=== PATIENT | male | born 1930 | race Caucasian/White ===

== ENCOUNTER 2016-10-27 00:30 | Inpatient (IN) | payer MEDICARE, OTHER ==
[~2016-10-27] VITALS: Ht 177.8 cm; Wt 79.8 kg
[2016-10-27] MEDS ORDERED: ONDANSETRON HCL/PF 4 MG/2 ML VIAL ONE (00:39)
[2016-10-27] MEDS ORDERED: IV NS 0.9% 1,000 ML ONE ×2 (00:40→05:27)
[2016-10-27] MEDS ORDERED: IV SET PRIMARY 1 EA INFUS.SET MC ONE (00:40)
[2016-10-27] MEDS ORDERED: METOCLOPRAMIDE HCL 10 MG/2 ML VIAL ONE (00:48)
--- NOTE | 2016-10-27 00:50 | NUR ---
PT A/OX4 BREATHING EFFORTLESSLY ON ROOM AIR, PT STATES HE FEELS VERY FAINT AND DIZZY, PT IS DIAPHROETIC AND PALE, PT BIBA FOR SYNCOPAL EPISODE, IV PLACED PRIOR TO ARRIVAL AND IV PLACED IN ER, LABS DRAWN, PT ON MONITOR, IN GOWN, AT BEDSIDE WILL CONTINUE TO MONITOR.
[2016-10-27] MEDS ORDERED: METOCLOPRAMIDE HCL 10 MG/2 ML VIAL IV ONE (01:00)
[2016-10-27] MEDS ORDERED: ONDANSETRON HCL/PF 4 MG/2 ML VIAL IVP ONE (01:00)
[2016-10-27] MEDS ORDERED: IV NS 0.9% 500 ML BAG IV ONE (01:00)
--- NOTE | 2016-10-27 01:13 | NUR ---
PT BACK FROM CT
[2016-10-27 01:26] LABS: BASOPHILS % (AUTO) 0.6 % (0.0-2.0); EOSINOPHILS # (AUTO) 0.5 /CMM (0.0-0.7); EOSINOPHILS % (AUTO) 5.9 % (0.0-6.0); HEMATOCRIT 38 % (39-51); HEMOGLOBIN 12.7 g/dL (13.5-17.5); LYMPHOCYTES # (AUTO) 2.7 /CMM (0.8-4.8); LYMPHOCYTES % (AUTO) 31.7 % (20.0-44.0); MEAN CORPUSCULAR HEMOGLOBIN 29 PG (26.0-33.0); MEAN CORPUSCULAR HGB CONC 33 g/dl (31.0-36.0); MEAN CORPUSCULAR VOLUME 88 fL (80-96); MONOCYTES # (AUTO) 0.7 /CMM (0.1-1.30); MONOCYTES % (AUTO) 8.4 % (2.0-12.0); NEUTROPHILS # (AUTO) 4.5 /CMM (1.8-8.9); NEUTROPHILS % (AUTO) 53.4 % (43.0-81.0); PLATELET COUNT (AUTO) 183 /CMM (150-450); RDW COEFFICIENT OF VARIATION 15.1 (11.5-15.0); RED BLOOD CELL COUNT(AUTO) 4.37 MIL/uL (4.5-6.0); WHITE BLOOD COUNT (AUTO) 8.5 K/uL (4.3-11.0)
[2016-10-27 01:28] LABS: INR 0.98 (0.87-1.13); PROTHROMBIN TIME 10.5 SECS (9.5-12.7)
[2016-10-27 01:34] LABS: CALCIUM, SERUM 8.5 mg/dL (8.5-10.1); CARBON DIOXIDE 24 mmol/L (21-32); CHLORIDE 105 mmol/L (98-107); CREATININE 1.6 mg/dL (0.6-1.3); GLUCOSE 147 mg/dL (74-106); POTASSIUM 3.3 mmol/L (3.5-5.1); SODIUM SERUM 139 mmol/L (136-145); TROPONIN I < 0.017 ng/mL (0.00-0.056); UREA NITROGEN, BLOOD 21 mg/dL (7-18)
[2016-10-27 01:39] LABS: ALANINE AMINOTRANSFERASE 16 U/L (12-78); ALBUMIN 3.4 g/dL (3.4-5.0); ALKALINE PHOSPHATASE 68 U/L (46-116); BILIRUBIN,DIRECT 0.1 mg/dL (0.0-0.2); BILIRUBIN,TOTAL 0.4 mg/dL (0.2-1.0); TOTAL PROTEIN, SERUM 6.9 g/dL (6.4-8.2)
[2016-10-27 01:52] LABS: ASPARTATE AMINOTRANSFERASE 0 U/L (15-37)
--- NOTE | 2016-10-27 02:17 | NUR ---
PT STATES HE IS FEELING BETTER, FAMILY AT BEDSIDE PT ON MONITOR VSS MADE AWARE WILL CONTINUE TO MONITOR.
[2016-10-27] MEDS ORDERED: ASPIRIN 81 MG TAB.CHEW ONE ×2 (03:10→04:21)
[2016-10-27 03:20] VITALS: BP 124/72
[2016-10-27] MEDS ORDERED: ASPIRIN 325 MG TABLET PO ONE (03:30)
--- NOTE | 2016-10-27 04:00 | NUR ---
MACHINE FEEDER ADMIITING NOTES RECEIVED PATIENT 0315 VIA GURNEY VIA ACLS PROTOCOL PATIENT ALERT/OX4, ABLE TO MAKE NEEDS KNOWN SELF TO OTHERS. SON AT BEDSIDE, IV SITE NO S/S OF INFILTRATED, PATIENT DENIES PAIN AT THIS TIME. CAREFUL HEAD TO TOE ASSESSMENT IS DONE SKIN IS INTACT, RESPIRATIONS EVEN AND UNLABORED. NO S/S OF ACUTE DISTRESS, NO SOB, NO COUGH, NO CONGESTION, NO C/O OF CHEST PAIN, ON 02 2LPM VIA NC O2 SAT AT 96% VS STABLE. SKIN WARM AND DRY TO TOUCH, AFEBRILE, SAFE HAZARD FREE ENVIRONMENT PROVIDED. CALL LIGHT WITHIN EASY TO REACH, ON LOW BED AT ALL TIMES TO ENSURE SAFETY WILL CONTINUE TO MONITOR
[2016-10-27] MEDS ORDERED: ONDANSETRON HCL/PF 4 MG/2 ML VIAL IVP PRN (05:00)
[2016-10-27] MEDS ORDERED: ACETAMINOPHEN 325 MG TABLET PO PRN (05:00)
[2016-10-27] MEDS ORDERED: Z GUARD REMEDY 2 OZ OINT TP PRN (05:00)
[2016-10-27] MEDS ORDERED: ZOLPIDEM TARTRATE 5 MG TABLET PO PRN (05:00)
[2016-10-27] MEDS ORDERED: MAGNESIUM HYDROXIDE 30 ML UDC PO PRN (05:00)
[2016-10-27] MEDS ORDERED: MAG HYDROX/AL HYDROX/SIMETH 30 ML UDC PO PRN (05:00)
[2016-10-27] MEDS ORDERED: IV D5/ 0.9% NACL 0 ML IV ONE (05:23)
[2016-10-27] MEDS ORDERED: IV SET PRIMARY PUMP SET 1 EA INFUS.SET MC ONE (05:23)
[2016-10-27] MEDS: IV NS 0.9% 1,000 ML IV PRN ×2 (05:42→21:01)
--- NOTE | 2016-10-27 06:29 | NUR ---
CIVIL ENGINEERING DRAFTSPERSON CLOSING NOTES PATIENT COMFORTABLY ASLEEP AND EASILY AWAKE, IV HYDRATION 75CC/HR ONGOING. IV SITE NO S/S OF INFILTRATED, PATIENT DENIES PAIN AT THIS TIME. RESPIRATIONS EVEN AND UNLABORED. NO S/S OF ACUTE DISTRESS, NO SOB, NO COUGH, NO CONGESTION, NO COMPLAINS OF CHEST PAIN. SKIN WARM AND DRY TO TOUCH, AFEBRILE, ALL NURSING CARE NEEDS PROVIDED AND RENDERED, NEEDS ATTENDED AND ANTICIPATED, KEPT CLEAN AND DRY AND COMFORTABLE, BLADDER NOT DISTENDED, GOOD SKIN CARE PROVIDED. ABDOMEN SOFT AND NON TENDER. NO C/O OF CONSTIPATION. ALL DUE MEDS WAS GIVEN TOLERATED. OFFLOAD AT ALL TIMES. FREQUENT VISUAL CHECK DONE FOR SAFETY EVERY 2 HOURS. SAFE HAZARD FREE ENVIRONMENT PROVIDED. CALL LIGHT WITHIN EASY TO REACH, ON LOW BED AT ALL TIMES TO ENSURE SAFETY, WILL ENDORSE TO THE NEXT SHIFT CONTINUE PLAN OF CARE.
--- NOTE | 2016-10-27 07:52 | NUR ---
AM RN NOTES RECEIVED PT IN STABLE CONDITION, AWAKE, NO SOB OR DISTRESS NOTED, NO DIZZINESS OR PAIN , WILL MONITOR.
[2016-10-27] MEDS: PANTOPRAZOLE 40 MG TABLET.DR PO SCH (08:27)
[2016-10-27 08:32] VITALS: BP 109/55
[2016-10-27] MEDS ORDERED: Magnesium 1GM/D5W 100ML PREMIX 100 ML IV SCH (08:50)
[2016-10-27 09:12] LABS: BASOPHILS % (AUTO) 0.3 % (0.0-2.0); EOSINOPHILS # (AUTO) 0.1 /CMM (0.0-0.7); EOSINOPHILS % (AUTO) 1.5 % (0.0-6.0); HEMATOCRIT 36 % (39-51); HEMOGLOBIN 12.1 g/dL (13.5-17.5); LYMPHOCYTES # (AUTO) 1.1 /CMM (0.8-4.8); LYMPHOCYTES % (AUTO) 16.7 % (20.0-44.0); MEAN CORPUSCULAR HEMOGLOBIN 30 PG (26.0-33.0); MEAN CORPUSCULAR HGB CONC 34 g/dl (31.0-36.0); MEAN CORPUSCULAR VOLUME 87 fL (80-96); MONOCYTES # (AUTO) 0.3 /CMM (0.1-1.30); MONOCYTES % (AUTO) 4.9 % (2.0-12.0); NEUTROPHILS # (AUTO) 5.1 /CMM (1.8-8.9); NEUTROPHILS % (AUTO) 76.6 % (43.0-81.0); PLATELET COUNT (AUTO) 146 /CMM (150-450); RDW COEFFICIENT OF VARIATION 14.8 (11.5-15.0); RED BLOOD CELL COUNT(AUTO) 4.11 MIL/uL (4.5-6.0); WHITE BLOOD COUNT (AUTO) 6.6 K/uL (4.3-11.0)
[2016-10-27 09:24] LABS: CALCIUM, SERUM 8.5 mg/dL (8.5-10.1); CREATININE 1.2 mg/dL (0.6-1.3); POTASSIUM 3.9 mmol/L (3.5-5.1)
[2016-10-27 09:34] LABS: ALBUMIN 3.2 g/dL (3.4-5.0); BILIRUBIN,TOTAL 0.4 mg/dL (0.2-1.0); MAGNESIUM 1.8 mg/dL (1.8-2.4); PHOSPHORUS 4.1 mg/dL (2.5-4.9)
[2016-10-27 09:46] LABS: TOTAL PROTEIN, SERUM 6.5 g/dL (6.4-8.2)
[2016-10-27 10:00] VITALS: BP_SYST 126; BP_SYST 130; BP_SYST 136; BP_DIAS 65; BP_DIAS 71; BP_DIAS 75
[2016-10-27] MEDS ORDERED: POTASSIUM CHLORIDE 20 MEQ TAB.PRT.SR PO SCH (11:00)
[2016-10-27 12:00] VITALS: BP 132/65
[2016-10-27] MEDS: HYDROCODONE/APAP 5/325MG 1 EACH TABLET PO PRN ×2 (14:43→20:53)
[2016-10-27 16:31] VITALS: BP 144/87
[2016-10-27 17:35] LABS: THYROID STIMULATING HORMONE 1.29 uIU/mL (0.358-3.74)
[2016-10-27 19:00] VITALS: BP 134/89
--- NOTE | 2016-10-27 23:00 | NUR ---
RN OPEN NOTES RECEIVED PATIENT RESTING IN BED. A/OX4. NO SIGNS OF DISTRESS OR DISCOMFORT. BREATHING EVEN AND UNLABORED. IV ACCESS IN RAC WITH NS INFUSING, PATENT AND INTACT, NO SIGNS OF REDNESS OR INFILTRATION. BED IN LOW LOCKED POSITION WITH SIDE RAILS X2. CALL LIGHT WITHIN REACH. WILL CONTINUE TO MONITOR.
--- NOTE | 2016-10-27 23:10 | NUR ---
PT IN STABLE CONDITION, NO PAIN OR DISCOMFORT NOTED, SLEEPING IN BED COMFORTABLY EASY TO AROUSE, INDORSED TO NEXT SHIFT FOR BRYANT.
[2016-10-28] VITALS (7 sets, daily range): BP systolic 132–159; BP diastolic 73–89
[2016-10-28] MEDS: HYDROCODONE/APAP 5/325MG 1 EACH TABLET PO PRN ×2 (01:12→05:34)
--- NOTE | 2016-10-28 01:15 | NUR ---
RN NOTES ADMINISTERED NORCO 5/325 PRN FOR PAIN 7/10 IN LEFT RIBS. WILL CONTINUE TO MONITOR.
--- NOTE | 2016-10-28 05:34 | NUR ---
RN NOTES ADMINISTERED NORCO 5/325 PRN FOR PAIN 7/10 IN LEFT RIBS. WILL CONTINUE TO MONITOR.
--- NOTE | 2016-10-28 07:10 | NUR ---
MONKEY TRAINER NOTES RECEIVED PATIENT IN BED AWAKE, A/O X3. PATIENT IS HARD OF HEARING, COOPERATIVE. ON OXYGEN AT 2L/MIN VIA NC, NO SOB NOTED. ON TELE MONITOR SINUS ROSEMARY HR 52, NO C/O PAIN OR ANY DISCOMFORT. IV IN RIGHT AC G16 PATENT AND INTACT, FLUSHES WELL. CALL LIGHT WITHIN REACH. WILL CONT TO MONITOR.
--- NOTE | 2016-10-28 07:35 | NUR ---
RN CLOSING NOTES PATIENT RESTING IN BED. A/OX4. NO SIGNS OF DISTRESS OR DISCOMFORT. BREATHING EVEN AND UNLABORED. IV ACCESS IN RAC WITH NS INFUSING, PATENT AND INTACT, NO SIGNS OF REDNESS OR INFILTRATION. ALL NEEDS MET. NO SIGNIFICANT CHANGES THROUGH THE NIGHT. BED IN LOW LOCKED POSITION WITH SIDE RAILS X2. CALL LIGHT WITHIN REACH. ENDORSED TO AM SHIFT FOR BRYANT.
[2016-10-28 08:13] LABS: BASOPHILS % (AUTO) 0.5 % (0.0-2.0); EOSINOPHILS # (AUTO) 0.4 /CMM (0.0-0.7); EOSINOPHILS % (AUTO) 6.6 % (0.0-6.0); HEMATOCRIT 38 % (39-51); HEMOGLOBIN 12.6 g/dL (13.5-17.5); LYMPHOCYTES # (AUTO) 1.1 /CMM (0.8-4.8); MEAN CORPUSCULAR HEMOGLOBIN 30 PG (26.0-33.0); MEAN CORPUSCULAR HGB CONC 34 g/dl (31.0-36.0); MEAN CORPUSCULAR VOLUME 89 fL (80-96); MONOCYTES # (AUTO) 0.6 /CMM (0.1-1.30); MONOCYTES % (AUTO) 8.8 % (2.0-12.0); NEUTROPHILS # (AUTO) 4.4 /CMM (1.8-8.9); NEUTROPHILS % (AUTO) 67.1 % (43.0-81.0); PLATELET COUNT (AUTO) 163 /CMM (150-450); RDW COEFFICIENT OF VARIATION 14.7 (11.5-15.0); RED BLOOD CELL COUNT(AUTO) 4.25 MIL/uL (4.5-6.0); WHITE BLOOD COUNT (AUTO) 6.6 K/uL (4.3-11.0)
[2016-10-28 08:28] LABS: CALCIUM, SERUM 8.7 mg/dL (8.5-10.1); CREATININE 1.1 mg/dL (0.6-1.3); MAGNESIUM 1.9 mg/dL (1.8-2.4); PHOSPHORUS 3.1 mg/dL (2.5-4.9); POTASSIUM 3.8 mmol/L (3.5-5.1)
[2016-10-28] MEDS: PANTOPRAZOLE 40 MG TABLET.DR PO SCH (08:58)
[2016-10-28] MEDS ORDERED: VALSARTAN 80 MG TABLET PO SCH (10:00)
[2016-10-28] MEDS ORDERED: ATORVASTATIN 10 MG TABLET PO SCH (10:00)
--- NOTE | 2016-10-28 10:55 | NUR ---
PATIENT TO BE DISCHARGED HOME ORDERED.
[2016-10-28] MEDS ORDERED: HYDR-3326 PO (10:57)
[2016-10-28] MEDS ORDERED: Valsartan PO (10:57)
[2016-10-28] MEDS ORDERED: ATOR10TA PO (10:57)
--- NOTE | 2016-10-28 11:30 | NUR ---
URINE COLLECTED AND SEND TO LAB FOR URINALYSIS AND DRUG SCREEN TEST.
--- NOTE | 2016-10-28 11:50 | NUR ---
REVIEWED VACCINE STATUS WITH THE PATIENT. PER PATIENT HE RECEIVED FLU VACCINE LAST YEAR APRIL AND PNA VACCINE IN 2014. UPDATED VACCINATION STATUS.
--- NOTE | 2016-10-28 14:00 | NUR ---
MS RN DISCHARGED PATIENT HAS BEEN CLEARED FOR DISCHARGE HOME BY . V/S REMAINS STABLE. PATIENT IS AMBULATORY, VOIDED WITHOUT DIFFICULTY. SKIN INTACT. DISCHARGE INSTRUCTION GIVEN TO THE PATIENT AND GRAND DAUGHTER-ETHEL, VERBALIZED UNDERSTANDING. BELONGINGS CHECKED AND PRESCRIPTION GIVEN TO THE PATIENT UPON DC. IV IN RIGHT AC REMOVED, GAUZED APPLIED, NO BLEEDING NOTED. PATIENT LEFT HOSP IN STABLE CONDITION VIA PRIVATE CAR, ACCOMPANIED BY GRAND DAUGHTER-ETHEL.
[2016-10-28 15:35] LABS: BILIRUBIN,URINE NEGATIVE (NEGATIVE); BLOOD, URINE TRACE Ery/uL (NEGATIVE); COLOR,URINE YELLOW (YELLOW); KETONES,URINE NEGATIVE (NEGATIVE); LEUKOCYTE ESTERASE ,URINE NEGATIVE (NEGATIVE); NITRITE, URINE NEGATIVE (NEGATIVE); PROTEIN,URINE NEGATIVE (NEGATIVE); UGLUCOSE NEGATIVE (NEGATIVE); UROBILINOGEN,URINE 0.2 EU/dL (0.2)
[2016-10-28 16:04] LABS: CANNABINOID, URINE NEGATIVE (NEGATIVE); PHENCYCLIDINE SCREEN,URINE NEGATIVE (NEGATIVE)
[2016-10-28 16:10] LABS: BACTERIA,URINE Few /HPF (None Seen); SQUAMOUS EPITHELIAL CELL,UR Few /HPF (None Seen)
[2016-10-28 16:12] LABS: ADD URINE CULTURE NO; APPEARANCE,URINE CLOUDY (CLEAR)
[2016-10-28 16:14] LABS: WBC,URINE 0-2 /HPF (0-3)
== END 2016-10-28 13:55 | disposition home or self-care (01) | DRG 682 ==
LOC: ER 00:32 → TELE 03:06 → MED 10-28 09:00
PROVIDERS: ADMIT Internal Medicine; ATTEND Family Medicine
DX: N17.0 Acute kidney failure with tubular necrosis (principal); J18.9 Pneumonia, unspecified organism; I12.9 Hypertensive chronic kidney disease with stage 1 through stage 4 chronic kidney disease, or unspecified chronic kidney disease; E86.9 Volume depletion, unspecified; D64.9 Anemia, unspecified; N18.9 Chronic kidney disease, unspecified; E87.6 Hypokalemia; R73.9 Hyperglycemia, unspecified
CPT/HCPCS: 36415; 70450-TC; 71010-TC; 80048-TC; 80053-TC; 80061-TC; 80076-TC; 80305; 81000-TC; 82728-TC; 83540-TC; 83690-TC; 83735-TC; 84100-TC; 84439-TC; 84443-TC; 84484-TC; 85025-TC; 85730-TC; 86850-TC; 87086-TC; 93307-TC; 93880-TC; 97001-TC; A4606; J2405; J2765; J7030; J7042; Z7610